=== PATIENT | female | born 1990 | race Asian ===

== ENCOUNTER 2018-03-12 19:04 | Inpatient (IN) | payer OTHER ==
[2018-03-12 19:44] VITALS: BMI 32.2
[2018-03-12 20:18] LABS: Amnisure Internal Control QC ACCEPTABLE (ACCEPTABLE); Amnisure Test RUPTURE DETECTED (No Rupture)
[2018-03-12] MEDS ORDERED: HYDROcodone/Acetaminophen 5/325 mg Tablet PO PRN ×2 (21:32)
[2018-03-12] MEDS ORDERED: NS / Oxytocin 40 units/1000ml 1,000 ML IV PRN (21:32)
[2018-03-12] MEDS: Lactated Ringer's 1,000 ML IV SCH (21:32)
[2018-03-12] MEDS ORDERED: Butorphanol Tartrate 1 MG/ML VIAL SLOW IVP PRN (21:32)
[2018-03-12] MEDS ORDERED: Lidocaine 1% (PF) 30 ML VIAL SC PRN (21:32)
[2018-03-12] MEDS ORDERED: Ondansetron HCl/PF 4 MG/2 ML Vial IVP PRN (21:32)
[2018-03-12] MEDS ORDERED: Ibuprofen 800 MG TAB PO PRN (21:32)
[2018-03-12] MEDS ORDERED: NS w/ Oxytocin 10 units 500 ML IV SCH (21:45)
[2018-03-12] MEDS ORDERED: Lactated Ringer's 1,000 ML IV SCH (21:45)
[2018-03-12 21:47] LABS: Hemoglobin 12.5 g/dL (12.0-16.0); Mean Corpuscular HGB CONC 35.1 g/dL (32.0-36.0); Mean Corpuscular Hemoglobin 27.6 pg (27.0-31.0); Mean Corpuscular Volume 78.5 fL (78.0-98.0); Mean Platelet Volume 8.9 fL (7.4-10.4); Platelet Count 186 thou/uL (130-400); Red Blood Cell (RBC) Count 4.53 mill/uL (4.20-5.40); White Blood Cell (WBC) Count 9.1 thou/uL (4.8-10.8)
[2018-03-12 22:25] LABS: Syphilis Antibody Nonreactive (Nonreactive); Syphilis Antibody Index 0.12 S/CO (<1.00 Non-Reactive)
[2018-03-12 23:31] LABS: HBSAg Index 0.22 S/CO (0-0.99); Hep B Surf Ag Non-Reactive S/CO (NonReactive)
[2018-03-13] MEDS ORDERED: Bupivacaine 0.75% 13.4 ML, fentaNYL Citrate/PF 400 MCG in Sodium Chloride 0.9% 78.6 ML EPIDURAL SCH (03:45)
[2018-03-13] MEDS ORDERED: DISCONTINUE ALL PREVIOUS NARCOTICS FS SCH (03:45)
[2018-03-13] MEDS ORDERED: Eucerin (Mineral Oil/Petrolatum,White) 30 gm Jar TOP PRN (04:42)
[2018-03-13] MEDS ORDERED: Lactated Ringer's 500 ML IV PRN (04:42)
[2018-03-13] MEDS ORDERED: diphenhydrAMINE 50 MG/ML VIAL IVP PRN (04:42)
[2018-03-13] MEDS ORDERED: Acetaminophen 325 MG TAB PO PRN (04:42)
[2018-03-13] MEDS ORDERED: Promethazine HCl 25 MG/ML VIAL IM PRN (04:42)
[2018-03-13] MEDS ORDERED: Ondansetron HCl/PF 4 MG/2 ML Vial IVP PRN ×2 (04:42→15:50)
[2018-03-13] MEDS ORDERED: Naloxone HCl 0.4 mg/ml Vial IVP PRN ×2 (04:42)
[2018-03-13] MEDS ORDERED: ePHEDrine/0.9% NaCl/PF SYRINGE 50 mg/10 ml SLOW IVP PRN (04:42)
[2018-03-13] MEDS ORDERED: fentaNYL Citrate/PF 400 MCG, Bupivacaine 0.5% 20 ML in Sodium Chloride 0.9% 72 ML EPIDURAL SCH (04:45)
[2018-03-13] MEDS ORDERED: Communication Order-Pharmacy FS SCH (04:45)
[2018-03-13] MEDS: Lactated Ringer's 1,000 ML IV SCH ×2 (05:26→16:46)
--- NOTE | 2018-03-13 08:07 | PDOC.LDPN ---
Labor & Delivery Progress Note - Subjective Subjective: comfortable - Objective Vital signs reviewed and normal: yes General: resting Dilation: 8 Effacement: 90% Station: 0 FHT: category 1 [place] contractions every: 2 AROM: clear fluid (arom of forebag) - Assessment (1) 39 weeks gestation of Code(s): Z3A.39 - 39 WEEKS GESTATION OF Current Visit: Yes Status : Acute (2) Active labor Code(s): [id number] - Current Visit: Yes Status: Acute (3) Previous delivery affecting Code(s): O34.219 - MATERNAL CARE FOR UNSP TYPE SCAR FROM PREVIOUS DEL Current Visit: Yes Status: Acute Plan: continue plan of care -: Active stage labor, FHT reassuring. Continue plan of care, pt consented for TOLAC, aware of risk and benefits to self and baby.
[2018-03-13] MEDS ORDERED: Lidocaine 1% (PF) 30 ML VIAL ONE (11:54)
--- NOTE | 2018-03-13 12:44 | PDOC.OPDEL ---
OB Operative/Delivery Note Delivery Dr/Surgeon: Declan Pre-Delivery Diagnosis: ruptured membrane Procedure/Post Delivery Dx: vaginal delivery after CS Weeks gestation: 39 Anesthesia: epidural - Findings A Sex: male - 1 min: 8 - 5 min: 9 - Additional Findings/Plan Placenta delivered: spontaneous Repaired Obstetrical Laceration: 2nd degree Estimated blood loss: 300ML EBL, qbl pending Compilations/Other Findings: loose nuchal x 1 Post delivery plan: routine recovery
[2018-03-13] MEDS ORDERED: Adacel (T-DAP) 0.5 ML VIAL IM ONE (15:50)
[2018-03-13] MEDS ORDERED: diphenhydrAMINE 25 MG CAP PO PRN (15:50)
[2018-03-13] MEDS ORDERED: Acetaminophen/Codeine 30-300mg Tablet PO PRN ×2 (15:50)
[2018-03-13] MEDS ORDERED: NS / Oxytocin 40 units/1000ml 1,000 ML IV SCH (15:50)
[2018-03-13] MEDS ORDERED: Milk Of Magnesia 30 ML UDCUP PO PRN (15:50)
[2018-03-13] MEDS ORDERED: Benzocaine/Menthol 20-0.5% 60 ML CAN TOP PRN (15:50)
[2018-03-13] MEDS ORDERED: Lanolin Ointment 7 GM TUBE TOP PRN (15:50)
[2018-03-13] MEDS ORDERED: Preparation H Ointment 28 GM TUBE PR PRN (15:50)
[2018-03-13] MEDS ORDERED: Bisacodyl 10 MG SUPP PR PRN (15:50)
[2018-03-13] MEDS: Ibuprofen 800 MG TAB PO SCH ×2 (16:44→21:27)
[2018-03-13] MEDS: Ferrous Sulfate 325 MG TAB PO SCH (17:42)
[2018-03-13] MEDS: Docusate Calcium (SURFAK) 240 MG CAP PO SCH (21:27)
[2018-03-14] MEDS: Ibuprofen 800 MG TAB PO SCH ×3 (05:19→21:01)
[2018-03-14 05:31] LABS: Hemoglobin 10.9 g/dL (12.0-16.0); Mean Corpuscular HGB CONC 32.9 g/dL (32.0-36.0); Mean Corpuscular Hemoglobin 26.5 pg (27.0-31.0); Mean Corpuscular Volume 80.5 fL (78.0-98.0); Mean Platelet Volume 9.1 fL (7.4-10.4); Platelet Count 161 thou/uL (130-400); RBC Distribution Width 15.2 % (11.5-14.5); Red Blood Cell (RBC) Count 4.11 mill/uL (4.20-5.40); White Blood Cell (WBC) Count 10.8 thou/uL (4.8-10.8)
[2018-03-14] MEDS: Docusate Calcium (SURFAK) 240 MG CAP PO SCH ×2 (09:37→21:01)
[2018-03-14] MEDS: Ferrous Sulfate 325 MG TAB PO SCH ×2 (09:37→17:19)
[2018-03-14] MEDS: Prenatal Vitamin 1 TAB PO SCH (09:37)
--- NOTE | 2018-03-14 10:28 | PDOC.PP ---
Post Progress Note Post Day #: 2 Subjective: doing well, no concerns, desires DC today PO intake tolerated: yes Flatus: yes Ambulation: yes Vital Signs (12 hours) Temp Pulse Resp BP 03/14/18 08:15 98.0 F 73 20 03/14/18 08:14 98.0 F 73 20 99/55 L 03/14/18 04:50 98.3 F 82 14 115/56 L 03/14/18 01:05 98.2 F 84 14 121/74 Weight Weight 165 lb - Physical Examination General: NAD Respiratory: non-labored breathing Abdominal: no distention Fundus firm & at: below umb Extremities: negative homans (B) Skin: no rash Neurological: no gross focal deficits Psychiatric: A&Ox3, normal affect Result Diagrams: 03/14/18 05:04 Additional Labs: Post Labs Blood Type A POSITIVE 03/12/18 21:32 Hep Bs Antigen Non-Reactive S/CO (NonReactive) 03/12/18 21:32 (1) 39 weeks gestation of Code(s): Z3A.39 - 39 WEEKS GESTATION OF Status: Acute (2) Active labor Code(s): [id number] - Status: Acute (3) Previous delivery affecting Code(s): O34.219 - MATERNAL CARE FOR UNSP TYPE SCAR FROM PREVIOUS DEL Status: Acute - Assessment/Plan PPD1 sp , no concerns. Poss DC today.
[2018-03-15] MEDS: Ibuprofen 800 MG TAB PO SCH ×2 (05:46→13:57)
[2018-03-15 08:16] VITALS: BP 110/60; TEMP 98.1
[2018-03-15] MEDS: Ferrous Sulfate 325 MG TAB PO SCH (09:00)
[2018-03-15] MEDS: Docusate Calcium (SURFAK) 240 MG CAP PO SCH (09:01)
[2018-03-15] MEDS: Prenatal Vitamin 1 TAB PO SCH (09:01)
--- NOTE | 2018-03-15 10:04 | PDOC.PP ---
Post Progress Note Post Day #: 2 Subjective: no concerns PO intake tolerated: yes Flatus: yes Ambulation: yes Vital Signs (12 hours) Temp Pulse Resp BP 03/15/18 07:40 98.1 F 60 18 110/60 Weight Weight 165 lb - Physical Examination General: NAD Respiratory: non-labored breathing Skin: no rash Neurological: no gross focal deficits Psychiatric: A&Ox3, normal affect Result Diagrams: 03/14/18 05:04 Additional Labs: Post Labs Blood Type A POSITIVE 03/12/18 21:32 Hep Bs Antigen Non-Reactive S/CO (NonReactive) 03/12/18 21:32 (1) 39 weeks gestation of Code(s): Z3A.39 - 39 WEEKS GESTATION OF Status: Acute (2) Active labor Code(s): [id number] - Status: Acute (3) Previous delivery affecting Code(s): O34.219 - MATERNAL CARE FOR UNSP TYPE SCAR FROM PREVIOUS DEL Status: Acute - Assessment/Plan PPD2, , no concerns, DC when baby DC.
== END 2018-03-15 15:05 | disposition home or self-care (01) | DRG 775 ==
LOC: L&D/OP 19:04 → L&D 21:16 → 3SW 03-13 15:09
PROVIDERS: ADMIT Obstetrics & Gynecology; ATTEND Obstetrics & Gynecology
PROC: 10E0XZZ Delivery of Products of Conception, External Approach (ICD-10-PCS; principal; 2018-03-12)
PROC: 10907ZC Drainage of Amniotic Fluid, Therapeutic from Products of Conception, Via Natural or Artificial Opening (ICD-10-PCS; 2018-03-12)
DX: O34.211 Maternal care for low transverse scar from previous cesarean delivery (principal); O70.1 Second degree perineal laceration during delivery; Z3A.00 Weeks of gestation of pregnancy not specified; Z37.0 Single live birth; O69.81X0 Labor and delivery complicated by cord around neck, without compression, not applicable or unspecified; Z3A.39 39 weeks gestation of pregnancy
CPT/HCPCS: 36415; 51702; 84112; 85027; 86780; 86850; 86900; 86901; 87340; 99285; J2001; J3010; J7050